=== PATIENT | female | born 1975 | race Caucasian/White ===

== ENCOUNTER 2017-09-16 11:42 | Emergency (ER) | payer BC ==
[~2017-09-16] VITALS: Ht 175.3 cm; Wt 77.1 kg
[2017-09-16 11:42] VITALS: BP 110/67
== END 2017-09-16 12:44 | disposition home or self-care (01) ==
LOC: ER 11:44
DX: O99.512 Diseases of the respiratory system complicating pregnancy, second trimester (principal); J40 Bronchitis, not specified as acute or chronic; Z3A.18 18 weeks gestation of pregnancy
CPT/HCPCS: 99283; A4606; Z7610